=== PATIENT | female | born 1960 | race American Indian/Alaskan Native ===

== ENCOUNTER 2017-08-04 17:21 | Emergency (ER) | payer SELFPAY ==
[2017-08-04 18:52] LABS: Basophils % (Auto) 0.6 % (0.0-1.8); Eosinophils # (Auto) 0.1 K/mm3 (0.0-0.4); Eosinophils % (Auto) 1.6 % (0.0-4.3); Hematocrit 39.9 % (30.3-42.9); Hemoglobin 13.1 gm/dl (10.1-14.3); Lymphocytes # (Auto) 1.6 K/mm3 (1.2-5.4); Lymphocytes % (Auto) 19.3 % (13.4-35.0); Mean Corpuscular HGB Conc 33 % (30-34); Mean Corpuscular Hemoglobin 33 pg (28-32); Mean Corpuscular Volume 102 fl (79-97); Monocytes # (Auto) 0.6 K/mm3 (0.0-0.8); Monocytes % (Auto) 6.8 % (0.0-7.3); Platelet Count 317 K/mm3 (140-440); Red Blood Count 3.93 M/mm3 (3.65-5.03); Red Cell Distribution Width 14.8 % (13.2-15.2)
[2017-08-04 19:10] LABS: BUN/Creatinine Ratio 9; Blood Urea Nitrogen 6 mg/dL (7-17); Calcium 9.3 mg/dL (8.4-10.2); Hemolysis Index 9
[2017-08-04] MEDS ORDERED: NACL 0.9% 1000 ML 1,000 ML IV ONE (20:37)
[2017-08-04] MEDS ORDERED: ZOFRAN IV ONE (20:37)
[2017-08-04] MEDS ORDERED: PROTONIX IV ONE (20:40)
--- NOTE | 2017-08-04 20:40 | Emergency Department Report ---
ED Abdominal Pain HPI - General Chief Complaint: Chest Pain Stated Complaint: ETOH Time Seen by Provider: 08/04/17 20:31 Source: patient Mode of arrival: Stretcher Limitations: No Limitations - History of Present Illness Initial Comments: Patient is 57 years old female with significant past medical history only for peptic ulcer. Patient presented to the ER complaining of epigastric pain that radiated to her left upper quadrant. Patient stated the pain is sharp in nature. Associated with nausea and vomiting. Patient denied any fever recently. Patient denied any chest pain. No shortness of breath. MD Complaint: abdominal pain Location: epigastric Radiation: LUQ Migration to: no migration Severity: moderate Quality: sharp Consistency: constant Associated Symptoms: nausea, vomiting, diarrhea - Related Data Previous Rx's Medication Instructions Recorded Last Taken Type Azithromycin [Zithromax Z-TIANA] 250 mg PO DAILY 1 Days tab 08/05/17 Unknown Rx Allergies Allergy/AdvReac Type Severity Reaction Status Date / Time pollen extracts Allergy Itching Verified 08/04/17 20:39 BIRD Allergy Unknown Uncoded 08/04/17 18:21 ED Review of Systems ROS: Stated complaint: ETOH Other details as noted in HPI Comment: All other systems reviewed and negative Constitutional: denies: chills, fever Respiratory: cough. denies: orthopnea, shortness of breath, SOB with exertion, SOB at rest, wheezing Cardiovascular: denies: chest pain, palpitations, dyspnea on exertion, orthopnea , edema, syncope, paroxysmal nocturnal dyspnea Gastrointestinal: abdominal pain, nausea, vomiting, diarrhea. denies: constipation, hematemesis, melena, hematochezia Musculoskeletal: denies: back pain Neurological: denies: headache, weakness, numbness ED Past Medical Hx - Past Medical History Previous Medical History?: No Hx of Cancer: Yes (OVARIAN) Additional medical history: OVARIAN CA - Surgical History Additional Surgical History: C SECTION. OVARY. RT LUNG. RIPS - Social History Smoking Status: Current Every Day Smoker Substance Use Type: Alcohol - Medications Home Medications: Home Medications Medication Instructions Recorded Confirmed Last Taken Type Azithromycin [Zithromax Z-TIANA] 250 mg PO DAILY 1 Days tab 08/05/17 Unknown Rx ED Physical Exam - General Limitations: No Limitations General appearance: alert, in no apparent distress - Head Head exam: Present: atraumatic, normocephalic, normal inspection - Eye Eye exam: Present: normal appearance, PERRL - ENT ENT exam: Present: normal exam, normal orophraynx, mucous membranes moist - Neck Neck exam: Present: normal inspection, full ROM. Absent: tenderness, meningismus, lymphadenopathy, thyromegaly - Respiratory Respiratory exam: Present: normal lung sounds bilaterally. Absent: respiratory distress, wheezes, rales, rhonchi, stridor, chest wall tenderness, accessory muscle use, decreased breath sounds, prolonged expiratory - Cardiovascular Cardiovascular Exam: Present: regular rate, normal rhythm, normal heart sounds - GI/Abdominal GI/Abdominal exam: Present: soft, tenderness (EPIGASTRIC), normal bowel sounds. Absent: distended, guarding, rebound, rigid, organomegaly, mass, bruit, pulsatile mass, hernia - Extremities Exam Extremities exam: Present: normal inspection, full ROM, normal capillary refill - Back Exam Back exam: Present: normal inspection, full ROM. Absent: tenderness, CVA tenderness (R), CVA tenderness (L), muscle spasm, paraspinal tenderness, vertebral tenderness - Neurological Exam Neurological exam: Present: alert, oriented X3, CN II-XII intact, normal gait - Skin Skin exam: Present: warm, intact, normal color ED Course Vital Signs 08/04/17 08/04/17 08/04/17 17:35 17:46 18:00 Temperature Pulse Rate Respiratory 17 20 20 Rate Blood Pressure 145/73 145/73 145/73 O2 Sat by Pulse 97 98 99 Oximetry 08/04/17 08/04/17 08/04/17 18:04 18:16 18:30 Temperature 98.2 F Pulse Rate 20 L Respiratory 20 20 20 Rate Blood Pressure 100/50 137/78 137/78 O2 Sat by Pulse 94 98 98 Oximetry 08/04/17 08/04/17 08/04/17 18:46 19:00 21:34 Temperature Pulse Rate 75 Respiratory 20 19 27 H Rate Blood Pressure 137/78 137/78 144/79 O2 Sat by Pulse 97 97 97 Oximetry 08/04/17 08/04/17 21:44 21:45 Temperature Pulse Rate 81 Respiratory 16 Rate Blood Pressure O2 Sat by Pulse 97 Oximetry ED Medical Decision Making - Lab Data Result diagrams: 08/04/17 18:27 08/04/17 18:27 - EKG Data -: EKG Interpreted by Pa EKG shows normal: sinus rhythm Rate: normal - EKG Data Interpretation: no acute changes - Radiology Data Radiology results: report reviewed Referring Physician: JUSTA GRIMALDO Patient Name: BIBI TINSLEY Date of : 1960 Sex: Female Report Date: 2017-08-04 Report Status: Finalized Findings [facility] [address] [place] [address] XRay Report Signed Patient: BIBI TINSLEY MR#: [id number] : 1960 Acct:[id number] Age/Sex: 57 / F ADM Date: 08/04/17 Loc: ED Attending Dr: Ordering Physician: JUSTA GRIMALDO Date of Service: 08/04/17 Procedure(s): XR chest 1V ap Accession Number(s): [id number] cc: JUSTA GRIMALDO Fluoro Time In Minutes: FINAL REPORT EXAM: XR CHEST 1V AP HISTORY: chest pain COMPARISON: None available. FINDINGS: Frontal view(s) of the chest obtained. Heart borderline enlarged. Prominent elevation left hemidiaphragm. Linear density left lung base which may reflect combination of atelectasis and scarring. Pneumonia is not excluded. Remaining lungs are clear. No pneumothorax. Prior plate screw fixation of 2 right mid to lower ribs. IMPRESSION: Prominent elevation of the diaphragm with nonspecific linear consolidation left lower lung which could reflect atelectasis or scarring. Small focus of pneumonia is not excluded. Transcribed By: LMA Dictated By: GIANNA BOJORQUEZ MD Electronically Authenticated By: GIANNA BOJORQUEZ MD Signed Date/Time: 08/04/172099 DD/ 99 TD/TT: 08/04/172099 Critical care attestation.: If time is entered above; I have spent that time in minutes in the direct care of this critically ill patient, excluding procedure time. ED Disposition Clinical Impression: Abdominal pain, Left lower lobe pneumonia, Alcohol intoxication Disposition: DC-01 TO HOME OR SELFCARE Is pt being admited?: No Condition: Stable Instructions: Alcohol Intoxication (ED), Bacterial Pneumonia (ED) Prescriptions: Azithromycin [Zithromax Z-TIANA] 250 mg PO DAILY 1 Days tab Referrals: PRIMARY CARE, [Primary Care Provider] - 3-5 Days
[2017-08-04] MEDS ORDERED: SUBLIMAZE IV ONE (20:45)
--- NOTE | 2017-08-04 21:04 | XRay Report ---
FINAL REPORT EXAM: XR CHEST 1V AP HISTORY: chest pain COMPARISON: None available. FINDINGS: Frontal view(s) of the chest obtained. Heart borderline enlarged. Prominent elevation left hemidiaphragm. Linear density left lung base which may reflect combination of atelectasis and scarring. Pneumonia is not excluded. Remaining lungs are clear. No pneumothorax. Prior plate screw fixation of 2 right mid to lower ribs. IMPRESSION: Prominent elevation of the diaphragm with nonspecific linear consolidation left lower lung which could reflect atelectasis or scarring. Small focus of pneumonia is not excluded.
[2017-08-05] MEDS ORDERED: TORADOL IV ONE (00:33)
[2017-08-05] MEDS ORDERED: ROCEPHIN/NS 1 GM/50 ML 1 GM/50 ML BAG IV ONE (00:33)
[2017-08-05] MEDS ORDERED: cefTRIAXone 1 GM in NACL 0.9% 20 ML IV ONE (01:00)
[2017-08-05] MEDS ORDERED: NACL 0.9% 500 ML 500 ML ONE (01:26)
[2017-08-05 10:40] VITALS: BP 110/59
== END 2017-08-05 10:42 | disposition home or self-care (01) ==
LOC: ED 17:21
DX: J18.9 Pneumonia, unspecified organism (principal); J18.1 Lobar pneumonia, unspecified organism; F10.129 Alcohol abuse with intoxication, unspecified; R10.13 Epigastric pain; F17.200 Nicotine dependence, unspecified, uncomplicated; Z79.899 Other long term (current) drug therapy; Z91.018 Allergy to other foods; Z91.09 Other allergy status, other than to drugs and biological substances
CPT/HCPCS: 36415; 71045; 80048; 83690; 84484; 85025; 87040; 93005; 93010; 96361; 96365; 96366; 96375; 99285; C9113; G0480; J0696; J1885; J2405; J3010; J7030; J7040; 80320